=== PATIENT | female | born 1995 | race Caucasian/White ===

== ENCOUNTER 2016-09-11 15:06 | Emergency (ER) | payer OTHER ==
[2016-09-11] MEDS ORDERED: IBUPROFEN 800 MG TABLET PO ONE (16:01)
[2016-09-11] MEDS: IBUPROFEN 800 MG TABLET PO STA (16:02)
== END 2016-09-11 17:30 | disposition home or self-care (01) ==
DX: S60.222A Contusion of left hand, initial encounter (principal); S50.02XA Contusion of left elbow, initial encounter; S50.12XA Contusion of left forearm, initial encounter; W01.198A Fall on same level from slipping, tripping and stumbling with subsequent striking against other object, initial encounter; Y93.89 Activity, other specified; Y92.89 Other specified places as the place of occurrence of the external cause; Y99.0 Civilian activity done for income or pay; F17.200 Nicotine dependence, unspecified, uncomplicated
CPT/HCPCS: 73080; 73090; 73130; 99283; A9270

== ENCOUNTER 2016-09-13 11:12 | Emergency (ER) | payer OTHER ==
[2016-09-13] MEDS ORDERED: HYDROcod/ACETAM 5/325 MG TABLET PO STA (12:10)
[2016-09-13] MEDS ORDERED: HYDROcod/ACETAM 5/325 MG TABLET ONE (12:27)
== END 2016-09-13 13:00 | disposition home or self-care (01) ==
DX: M62.838 Other muscle spasm (principal); W01.0XXA Fall on same level from slipping, tripping and stumbling without subsequent striking against object, initial encounter; Y92.138 Other place on military base as the place of occurrence of the external cause; Y99.1 Military activity; F17.200 Nicotine dependence, unspecified, uncomplicated
CPT/HCPCS: 73030; 99283; A9270

== ENCOUNTER 2019-01-22 08:31 | Outpatient (CLI) | payer OTHER ==
--- NOTE | 2019-01-22 17:48 | MRI Report ---
Reason: PAIN IN UNSPECIFIED JOINT, THIGH Procedure Date: 01/22/2019 Accession Number: [id number] / [id number] Procedure: MRI - Femur/Thigh RT W/O CPT Code: FULL RESULT: EXAM: RIGHT FEMUR/THIGH MRI WITHOUT CONTRAST EXAM DATE: 01/22/2019 09:35 AM. CLINICAL HISTORY: Right upper leg pain. Injured running. No prior surgery. COMPARISON: None. TECHNIQUE: Multiplanar, multisequence T1-weighted and fluid-sensitive sequences of the femur/thigh without contrast. Other: None. FINDINGS: Bones: No fractures or subluxations. No marrow edema. No bone lesions. Joint Spaces: Visualized portion of the hip joint is unremarkable on these large [id number] images. Tendons: The visualized hamstring origins are unremarkable. Musculature: No edema or fatty atrophy. Other: The visualized sciatic and femoral nerves are unremarkable. The subcutaneous tissues are unremarkable. IMPRESSION: No MRI abnormalities in the femur/thigh. [facility]
--- NOTE | 2019-01-22 18:36 | MRI Report ---
Reason: PAIN IN UNSPECIFIED JOINT, THIGH Procedure Date: 01/22/2019 Accession Number: [id number] / [id number] Procedure: MRI - Knee RT W/O CPT Code: FULL RESULT: EXAM: RIGHT KNEE MRI WITHOUT CONTRAST EXAM DATE: 01/22/2019 10:08 AM. CLINICAL HISTORY: PAIN IN UNSPECIFIED JOINT, THIGH. COMPARISON: None. TECHNIQUE: Multiplanar, multisequence T1-weighted and fluid-sensitive sequences of the knee without contrast. Other: None. FINDINGS: Bones: No fractures or subluxations. No marrow edema. No bone lesions. Articular Cartilage: Unremarkable. Medial Meniscus: The medial meniscus is intact. Lateral Meniscus: The lateral meniscus is intact. Cruciate Ligaments: The anterior and posterior cruciate ligaments are intact. Collateral Ligaments: The medial collateral and lateral collateral ligamentous structures are intact. Tendons: The quadriceps, patellar, semimembranosus, and popliteus tendons are unremarkable. Musculature: No edema or fatty atrophy. Other: No effusion. No popliteal cyst. No loose bodies. The medial and lateral retinacula are intact. The subcutaneous tissues and fat pads are unremarkable. IMPRESSION: No MRI abnormalities in the knee. [facility]
== END 2019-01-22 08:32 | disposition home or self-care (01) ==
LOC: DI 08:31
PROVIDERS: ATTEND General Practice
DX: M79.651 Pain in right thigh (principal); M25.561 Pain in right knee

== ENCOUNTER 2019-01-23 22:08 | Outpatient (CLI) | payer OTHER ==
--- NOTE | 2019-01-24 07:04 | Ultrasound Report ---
Reason: OTHER OVARIAN CYST, LEFT SIDE Procedure Date: 01/23/2019 Accession Number: [id number] / [id number] Procedure: US - Pelvic w/Transvaginal CPT Code: FULL RESULT: EXAM: PELVIC ULTRASOUND EXAM DATE: 01/23/2019 11:18 PM. CLINICAL HISTORY: Left ovarian cyst. COMPARISON: FEMUR/THIGH RT W/O 01/22/2019 8:55 AM. TECHNIQUE: Real-time transabdominal pelvic scan performed to identify the uterus and adnexa and as an overview of other pelvic structures, followed by transvaginal scan to provide greater detail of the uterus and adnexa, with static image documentation. FINDINGS: Uterus: 7.8 x 4.4 x 3.2 cm, volume 57.4 cc. Anteverted position. Normal overall size and echotexture. Masses: None. Endometrium: 3 mm. Normal. Cervix: Unremarkable. Right Ovary: 3.0 x 2.4 x 2.1 cm, volume 7.9 cc. Normal echotexture and blood flow. Left Ovary: 3.1 x 2.4 x 2.5 cm, volume 9.7 cc. Normal echotexture and blood flow. There is a 6.5 x 6.8 x 4.9 cm cyst adjacent to the left ovary containing low level internal avascular echoes and a probable fluid-fluid level. No solid component seen. Free Fluid: Trace considered physiologic. Other: None. IMPRESSION: 1. Left paraovarian 6.8 cm hemorrhagic cyst versus endometrioma. [facility] The call report notification system was initiated by Dr. Mick Mclean at 01:17 AM on 01/24/2019. The above call report findings were discussed with Ignacio Weller by Dr. Mick Mclean at 01:22 AM on 01/24/2019.
== END 2019-01-23 22:09 | disposition home or self-care (01) ==
LOC: DI 22:08
PROVIDERS: ATTEND Obstetrics & Gynecology
DX: N83.292 Other ovarian cyst, left side (principal)
CPT/HCPCS: 36415; 76830; 76856; 82378; 85027; 85651; 86304

== ENCOUNTER 2019-01-28 11:02 | Outpatient (CLI) | payer OTHER ==
[2019-01-28 11:31] LABS: BASOPHILS % (AUTO) 0.4 %; EOSINOPHILS # (AUTO) 0.1 10^3/uL (0.0-0.7); EOSINOPHILS % (AUTO) 1.5 %; HGB - HEMOGLOBIN 12.7 g/dL (12.0-16.0); LYMPHOCYTES # (AUTO) 1.8 10^3/uL (1.5-3.5); LYMPHOCYTES % (AUTO) 33.3 %; MEAN CORPUSCULAR HEMOGLOBIN 30.5 pg (27.0-31.0); MEAN CORPUSCULAR HGB CONC 33.4 g/dL (32.0-36.0); MEAN CORPUSCULAR VOLUME 91.1 fL (81.0-99.0); MEAN PLATELET VOLUME 10.5 fL (7.9-10.8); MONOCYTES # (AUTO) 0.4 10^3/uL (0.0-1.0); MONOCYTES % (AUTO) 7.5 %; NEUTROPHILS # (AUTO) 3.1 10^3/uL (1.5-6.6); NEUTROPHILS % (AUTO) 57.1 %; PLT - PLATELET COUNT 246 10^3/uL (130-450); RED BLOOD COUNT 4.17 10^6/uL (4.20-5.40); RED CELL DISTRIBUTION WIDTH 12.9 % (12.0-15.0); WHITE BLOOD COUNT 5.5 x10^3/uL (4.8-10.8)
[2019-01-28 11:37] LABS: HCG UR QUAL NEGATIVE
[2019-01-28 11:43] LABS: CALCIUM 8.8 mg/dL (8.5-10.3); CREATININE 0.6 mg/dL (0.4-1.0)
[2019-01-29] MEDS ORDERED: ONDANSETRON 4 MG/2 ML VIAL IVP PRN (17:05)
[2019-01-29] MEDS ORDERED: LORazepam 2 MG/ML VIAL IVP PRN (17:05)
[2019-01-29] MEDS ORDERED: oxyCODONE 5 MG TABLET PO PRN (17:05)
[2019-01-29] MEDS ORDERED: HYDROmorphone 0.5 MG/0.5 ML SYRINGE IVP PRN (17:05)
--- NOTE | 2019-01-29 17:09 | OPERATIVE REPORT ---
Operative Report - General Procedure Date: 01/29/19 Planned Procedure: Laporoscopic excision of left ovarian endometrioma Pre-Op Diagnosis: 7 cm left ovarian endometrioma Procedure Performed: Laporoscopic excision of left ovarian endometrioma Post Op Diagnosis: 7 cm left ovarian endometrioma - Procedure Note Primary Surgeon: Ignacio Weller MD Secondary Surgeon: Caryn Cleaning Anesthesia Provider: Abena Massey CRNA Anesthesia Technique: General ET tube Pathology: left ovarian endometrioma IV Fluids (mL): 1,200 Estimated Blood Loss (mL): 100 Urine Output (mL): 100 Indications: 7 cm left endometrioma - Other Other Information/Narrative: dictation # [id number]
== END 2019-01-28 11:03 | disposition home or self-care (01) ==
LOC: LAB 11:02
PROVIDERS: ATTEND Obstetrics & Gynecology
DX: Z01.812 Encounter for preprocedural laboratory examination (principal); N80.1 Endometriosis of ovary
CPT/HCPCS: 36415; 80048; 81025; 85025; 86850; 86900; 86901

== ENCOUNTER 2019-01-29 11:52 | Day surgery (SDC) | payer OTHER ==
[~2019-01-29 11:52] MED LIST: CEFAZOLIN SODIUM IN 0.9 % NACL 2 GM/100 ML BAG IV ONE
[2019-01-29 12:35] LABS: HCG UR QUAL NEGATIVE
[2019-01-29] MEDS ORDERED: LACTATED RINGERS 1,000 ML IV ONE ×2 (12:43→17:05)
--- NOTE | 2019-01-29 13:08 | ANESTHESIA ---
Pre-Anesthesia VS, & Labs - Diagnosis left endometrioma - Procedure laparoscopic removal of endometrioma on left Vital Signs: Temp Pulse Resp BP Pulse Ox 36.8 C 80 18 117/74 100 01/29/19 12:10 01/29/19 12:10 01/29/19 12:10 01/29/19 12:10 01/29/19 12:10 Height 5 ft 7 in Weight (kg) 77 kg Body Mass Index 23.3 - NPO >8 hours - Is Patient ?: No Home Medications and Allergies Home Medications: Ambulatory Orders Acetaminophen [Tylenol] 3,253,650 mg PO DAILY PRN 01/28/19 Acetaminophen [Tylenol] 3,253,650 mg PO DAILY PRN 01/28/19 Allergies/Adverse Reactions: Allergies Allergy/AdvReac Type Severity Reaction Status Date / Time No Known Drug Allergies Allergy Verified 01/28/19 13:40 Anes History & Medical History - Anesthetic History Anesthesia Complications: reports: No previous complications Family history of Anesthesia Complications: Denies Family history of Malignant Hyperthermia: Denies - Medical History Cardiovascular: reports: None Pulmonary: reports: None Gastrointestinal: reports: GERD Urinary: reports: None, Incontinence Musculoskeletal: reports: Fibromyalgia, Other Skin: reports: Rosacea Smoking Status: Former smoker Exam General: Alert Dental: WNL Mouth Opening: Greater than 4 Fingerbreadths Mallampati classification: III Thyromental Distance: greater than 6 cm Respiratory: Lungs clear Cardiovascular: Regular rate, Normal S1, Normal S2 Mental/Cognitive Status: Alert/Oriented X3 Plan Anesthesia Type: General Consent for Procedure(s) Verified and Reviewed: Yes Code Status: Attempt Resuscitation ASA classification: 2-Mild systemic disease Is this case an emergency?: No
[2019-01-29] MEDS ORDERED: SCOPOLAMINE PATCH TOP ONE (13:17)
[2019-01-29] MEDS ORDERED: MIDAZOLAM 2 MG/2 ML VIAL ONE (13:22)
[2019-01-29] MEDS ORDERED: BUPIVACAINE 0.25%-EPI 1:200000 PF 30 ML VIAL ONE (15:15)
[2019-01-29] MEDS ORDERED: BUPIVACAINE 0.25%-EPI 1:200000 PF 10 ML VIAL SUBQ ONE ×2 (15:17)
[2019-01-29] MEDS ORDERED: ONDANSETRON 4 MG/2 ML VIAL ONE (17:41)
[2019-01-29] MEDS ORDERED: HYDROmorphone 0.5 MG/0.5 ML SYRINGE ONE (17:47)
[2019-01-29] MEDS ORDERED: ONDANSETRON 4 MG/2 ML VIAL IVP PRN (18:18)
[2019-01-29] MEDS ORDERED: HYDROmorphone 0.5 MG/0.5 ML SYRINGE IVP PRN (18:18)
[2019-01-29] MEDS ORDERED: LORazepam 2 MG/ML VIAL IVP PRN (18:18)
[2019-01-29] MEDS: oxyCODONE 5 MG TABLET PO PRN (19:56)
[2019-01-29] MEDS ORDERED: SODIUM CHLORIDE FLUSH 0.9% 10 ML SYRINGE ONE (22:33)
[2019-01-30] MEDS: oxyCODONE 5 MG TABLET PO PRN ×3 (00:14→08:50)
[2019-01-30] MEDS ORDERED: SODIUM CHLORIDE FLUSH 0.9% 10 ML SYRINGE ONE ×2 (01:36→08:54)
--- NOTE | 2019-01-30 01:44 | OPERATIVE REPORT ---
DATE OF SERVICE: 01/29/2019 Physician: Ignacio Weller MD PREOPERATIVE DIAGNOSIS: Left ovarian endometrioma. POSTOPERATIVE DIAGNOSIS: Left ovarian endometrioma. PROCEDURE PERFORMED: Laparoscopic removal of left ovarian endometrioma, as well as left serous cyst. SURGEON: Ignacio Weller MD PAPER BAG MAKER: Anju Crespo MD ANESTHESIA: General via endotracheal tube with Christina Matthews CRNA. ESTIMATED BLOOD LOSS: 100 mL INTRAVENOUS FLUIDS: 1200 mL URINE: 100 mL, in-and-out catheterization prior to the case. FINDINGS: Upon entering the abdominal cavity, the appendix appeared to be normal. There is no evide nce of any injury at site of insertion. However, there was a large cyst attached to the left ovary, ovarian tissue being splayed over it. There was also evidence of small, serous cyst associated with this. The right tube and ovary appeared free of disease, as well as the left fallopian tube. DESCRIPTION OF PROCEDURE: Following adequate endotracheal anesthesia, patient was placed in dorsal l ithotomy position. At this point, she was prepped and draped in the usual fashion. A timeout was pe rformed, at which time, the concerns were addressed. A speculum was placed in the vagina. The cervi x was visualized and then dilated up to 8 mm, and then a HUMI catheter was placed without difficulty. The shellfish dredge operator's gloves were changed and following this, following local anesthesia with 0.25% Marcai ne, a #11 blade was used for a stab wound below the subumbilicus in a transverse orientation. A 5 mm trocar and sheath were placed under direct visualization on the first pass. At this point, both lef t and right lower quadrant incisions were made, following local anesthesia with 0.25% Marcaine, and 5 mm trocars and sheaths were both placed under direct visualization. The pelvis was inspected. Ther e was evidence of a large left ovarian cyst, compatible with the ultrasound findings. It also discol ored, compatible with the diagnosis of an endometrioma. At this point, electrocautery was used in a hook to score over the ovary. Then, a [place] LigaSure was used to dissect the ovarian endometrioma from the ovary. This was carried most of the way in. At this point, the endometrioma ruptured. Th en, using traction and countertraction, a remainder of the endometrioma was removed from the ovary. The left ovarian cyst serous cyst was then removed. The bed was treated with electrocautery. There was some difficulty with oozing. This was then eventually treated with Surgicel with direct pressure . Following observation, this appeared to have good control of her bleeding. There was no evidence of any further bleeding at this time. At this point, the procedure was terminated. Both left and ri ght trocar sites were removed under direct visualization. The CO2 was allowed to escape through the subumbilical port. Both sites were then closed using 4-0 Monocryl and injected with 0.25% Marcaine. Following deflation of the HUMI catheter, the HUMI was removed from the cervix. Patient tolerated t he procedure well and was taken to Recovery in stable condition. Sponge and needle counts were corre ct. TD: 01/29/2019 17:26
[2019-01-30] MEDS ORDERED: ACETAMINOPHEN 500 MG TABLET PO PRN (08:17)
[2019-01-30] MEDS ORDERED: KETOROLAC 30 MG/ML VIAL IVP PRN (08:18)
[2019-01-30] MEDS ORDERED: oxyCODONE 5 MG TABLET PO PRN (08:19)
--- NOTE | 2019-01-30 08:32 | PROVIDER PROGRESS NOTE ---
Subjective - General Procedure Date: 01/29/19 Post Op Days: 1 Procedure Performed: Laproscopic removal of left ovarian endometrioma - Review of Systems Wound/Incisions: positive: Dressing dry and intact, No drainage General: positive: No symptoms (Pain 6/10.) Pulmonary: positive: No symptoms Cardiovascular: positive: No symptoms Gastrointestinal: negative: Nausea, Vomiting, Flatus Objective - Patient Data Reviewed Vital Signs: Yes Vital Signs: Vital Signs x48h Temp Pulse Resp BP Pulse Ox 01/30/19 07:30 36.9 C 53 L 16 99/51 L 98 01/30/19 04:00 36.5 C 51 L 16 94/41 L 99 Weight: Weight 01/28/19 01/29/19 01/30/19 23:59 23:59 23:59 Weight (kg) 77 kg Intake & Output: Intake and Output Totals x24h 01/28/19 01/29/19 01/30/19 23:59 23:59 23:59 Intake Total 1500 Output Total 300 Balance 1200 - Lab Results Other Lab Results: Lab Results x24hrs 01/29/19 Range/Units Unknown Ur Specific [place] 1.015 (1.002-1.030) Urine HCG, Qual NEGATIVE - Current Medications Current Medications: Current Medications Generic Name Dose Route Start Last Admin Trade Name Freq PRN Reason Stop Dose Admin Hydromorphone HCl 0.5 mg 01/29/19 18:18 01/30/19 01:38 Dilaudid Inj Syringe IVP 0.5 mg Q30M PRN Administration Breakthrough Pain Ondansetron HCl 4 mg 01/29/19 18:18 01/29/19 22:26 Zofran Inj IVP 4 mg Q6HR PRN Administration Nausea / Vomiting - Physical Exam Wound/Incisions: positive: Healing well, Dressing dry and intact General Appearance: positive: Mild distress (Pain is 6/10.) Respiratory: positive: Chest non-tender Cardiovascular: positive: Regular rate & rhythm Abdomen: positive: Nml bowel sounds, Tenderness. negative: Guarding, Rebound Back: negative: CVA tenderness (R), CVA tenderness (L) Extremities: negative: Calf tenderness, Andi's sign/cords Neurologic/Psychiatric: positive: Oriented x3 Impression/Plan - Problem List Problem List: Pr is POD #1 slow progress. difficulty with pain control. may be worse secondary to FM. will obtain CBC.
[2019-01-30 09:25] LABS: BASOPHILS % (AUTO) 0.2 %; EOSINOPHILS % (AUTO) 0.2 %; HGB - HEMOGLOBIN 12.8 g/dL (12.0-16.0); LYMPHOCYTES # (AUTO) 2.1 10^3/uL (1.5-3.5); LYMPHOCYTES % (AUTO) 15.4 %; MEAN CORPUSCULAR HEMOGLOBIN 29.4 pg (27.0-31.0); MEAN CORPUSCULAR HGB CONC 31.5 g/dL (32.0-36.0); MEAN CORPUSCULAR VOLUME 93.1 fL (81.0-99.0); MEAN PLATELET VOLUME 10.2 fL (7.9-10.8); MONOCYTES # (AUTO) 0.8 10^3/uL (0.0-1.0); MONOCYTES % (AUTO) 6.2 %; NEUTROPHILS # (AUTO) 10.5 10^3/uL (1.5-6.6); NEUTROPHILS % (AUTO) 77.6 %; PLT - PLATELET COUNT 251 10^3/uL (130-450); RED BLOOD COUNT 4.36 10^6/uL (4.20-5.40); RED CELL DISTRIBUTION WIDTH 13.1 % (12.0-15.0); WHITE BLOOD COUNT 13.5 x10^3/uL (4.8-10.8)
[2019-01-30 11:17] VITALS: BP 100/54
--- NOTE | 2019-02-03 13:28 | OPERATIVE REPORT ---
Operative Report - General Planned Procedure: Laporoscopic excision of left ovarian endometrioma Pre-Op Diagnosis: 7 cm left ovarian endometrioma Procedure Performed: Laporoscopic excision of left ovarian endometrioma Post Op Diagnosis: 7 cm left ovarian endometrioma - Procedure Note Primary Surgeon: Ignacio Weller MD Secondary Surgeon: Caryn Cleaning Anesthesia Provider: Abena Massey CRNA Anesthesia Technique: General ET tube Pathology: left ovarian endometrioma IV Fluids (mL): 1,200 Estimated Blood Loss (mL): 100 Urine Output (mL): 100 Indications: 7 cm left endometrioma - Other Other Information/Narrative: dictation # [id number]
== END 2019-01-30 12:30 | disposition home or self-care (01) ==
LOC: SDS 11:52 → MS2 17:46 → SDS 01-30 12:30
PROVIDERS: ATTEND Obstetrics & Gynecology
PROC: 0UB14ZZ Excision of Left Ovary, Percutaneous Endoscopic Approach (ICD-10-PCS; principal; 2019-01-29 13:00)
DX: N80.1 Endometriosis of ovary (principal); N83.202 Unspecified ovarian cyst, left side
CPT/HCPCS: 58662; 81025; 85025; A9270; J0690; J1170; J3490; J7120

== ENCOUNTER 2019-01-31 09:28 | Emergency (ER) | payer OTHER ==
--- NOTE | 2019-01-31 09:55 | ED Physician Documentation ---
History of Present Illness - Stated complaint Stated Complaint: POST SURG COMPLICATION - Chief complaint Chief Complaint: General - History obtained from History obtained from: Patient - Additonal information Additional information: This is a 23-year-old female with a history of fibromyalgia, who recently underwent partial oophorectomy and ovarian cyst resection on the , presents with several pain complaints. She states that she has some mild persistent abdominal discomfort over her surgical site which has been largely unchanged since her surgery. This morning she also had some cramping on her bilateral anterior thighs. She also had some twitching pain in her left pinky finger, and a now resolved episode of slight pain underneath her left breast. She has had some nausea but no vomiting she took her home pain medications and then sought care in this ED. No fever, hemoptysis, history of blood clots. Review of Systems Constitutional: reports: Myalgias. 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 - Past Surgical History Past Surgical History: No - Present Medications Home Medications: Ambulatory Orders Medication Instructions Recorded Confirmed Acetaminophen [Tylenol] 3,253,650 mg PO DAILY PRN 01/28/19 01/31/19 Acetaminophen 650 mg PO Q6HR #30 tablet 01/31/19 Ondansetron Odt [Zofran] 4 mg TL Q6H PRN #10 tablet 01/31/19 Polyethylene Glycol 3350 [Miralax] 17 gm PO BID PRN #1 powder 01/31/19 oxyCODONE [Roxicodone] 5 mg PO Q4-6H 01/31/19 01/31/19 - Allergies Allergies/Adverse Reactions: Allergies Allergy/AdvReac Type Severity Reaction Status Date / Time No Known Drug Allergies Allergy Verified 01/31/19 09:36 - Social History Does the pt smoke?: Yes Smoking Status: Former smoker - Immunizations Immunizations are current?: Yes Immunizations: TDAP current <10years PD ED PE NORMAL - Vitals Vital signs reviewed: Yes - General General: Alert and oriented X 3, Other (Well appearing) - HEENT HEENT: PERRL - Neck Neck: Supple, no meningeal sign - Cardiac Cardiac: RRR, No murmur - Respiratory Respiratory: Clear bilaterally - Abdomen Abdomen: Normal bowel sounds, Soft, Other (Well-healed laparoscopy incisions with mild expected bruising. No active bleeding. There is mild tenderness in the suprapubic region over the laparoscopy site. There is also mild tenderness in the bilateral upper quadrants. No guarding) - Back Back: No CVA TTP - Derm Derm: Warm and dry - Extremities Extremities: No deformity, No calf tenderness / cord - Neuro Neuro: Alert and oriented X 3 - Psych Psych: Normal mood Results - Vitals Vitals: Oxygen O2 Source Room air - Labs Labs: Laboratory Tests 01/31/19 01/31/19 01/31/19 10:22 10:22 10:22 WBC 8.4 RBC 3.91 L Hgb 11.8 L Hct 36.5 L MCV 93.4 MCH 30.2 MCHC 32.3 RDW 13.3 Plt Count 218 MPV 10.7 Neut # (Auto) 4.6 Lymph # (Auto) 2.8 [place] # (Auto) 0.8 Eos # (Auto) 0.2 Baso # (Auto) 0.0 Absolute Nucleated RBC 0.00 Nucleated RBC % 0.0 Sodium 140 Potassium 3.1 L Chloride 106 Carbon Dioxide 25 Anion Gap 9.0 BUN 11 Creatinine 0.8 Estimated GFR (MDRD) 89 Glucose 80 Calcium 9.0 Total Bilirubin 0.5 AST 16 ALT 13 Alkaline Phosphatase 57 Total Protein 6.9 Albumin 4.0 Globulin 2.9 Albumin/Globulin Ratio 1.4 Lipase 28 HCG, Quant < 0.60 Urine Color Urine Clarity Urine pH Ur Specific [place] Urine Protein Urine Glucose (UA) Urine Ketones Urine Occult Blood Urine Nitrite Urine Bilirubin Urine Urobilinogen Ur Leukocyte Esterase Urine RBC Urine WBC Ur Squamous Epith Cells Urine Bacteria Ur Microscopic Review Urine Culture Comments 01/31/19 10:45 WBC RBC Hgb Hct MCV MCH MCHC RDW Plt Count MPV Neut # (Auto) Lymph # (Auto) [place] # (Auto) Eos # (Auto) Baso # (Auto) Absolute Nucleated RBC Nucleated RBC % Sodium Potassium Chloride Carbon Dioxide Anion Gap BUN Creatinine Estimated GFR (MDRD) Glucose Calcium Total Bilirubin AST ALT Alkaline Phosphatase Total Protein Albumin Globulin Albumin/Globulin Ratio Lipase HCG, Quant Urine Color LT RED Urine Clarity HAZY Urine pH 6.5 Ur Specific [place] <=1.005 Urine Protein NEGATIVE Urine Glucose (UA) NEGATIVE Urine Ketones NEGATIVE Urine Occult Blood LARGE H Urine Nitrite NEGATIVE Urine Bilirubin NEGATIVE Urine Urobilinogen 0.2 (NORMAL) Ur Leukocyte Esterase NEGATIVE Urine RBC TNTC H Urine WBC 4-5 Ur Squamous Epith Cells FEW Squamous Urine Bacteria Rare Ur Microscopic Review INDICATED Urine Culture Comments NOT INDICATED PD MEDICAL DECISION MAKING - ED course Complexity details: considered differential (Bowel obstruction, postsurgical pain, electrolyte abnormality, abscess/infection, urinary tract infection) ED course: This is a 23-year-old female who presents with some abdominal pain after recent surgery. On initial examination patient is nontoxic-appearing vital signs unremarkable and she has a benign abdominal exam. Labs are notable for mild anemia of 11.8, white count is normal. CMP shows a mild hypokalemia which is repleted orally, her lipase is negative, hCG is negative and UA is negative for infection. Patient was given Zofran for her symptoms, on repeat examination she is feeling improved, she is able to tolerate p.o. without issue, and her abdominal exam remains benign. Her vital signs remained stable while she is been in the emergency department. I discussed that she likely has some postoperative pain. She also is constipated, likely from taking narcotic medication without a stool softener, she was prescribed MiraLAX I'm not sure what the cause is of her left hand twitching, however this is completely resolved and I doubt any serious pathology. I discussed that she return the emergency department if she has worsening symptoms, otherwise she can follow-up with her surgeon. Patient agreed with plan was discharged home. Departure - Departure Disposition: 01 Home, Self Care Clinical Impression: Hypokalemia, Abdominal pain Condition: Stable Instructions: Hypokalemia Dc, ED Abdominal Pain Unkn Cause Follow-Up: Your,Surgeon [Other] (Please follow up with your surgeon as soon as possible, within one week) Prescriptions: Acetaminophen 650 mg PO Q6HR #30 tablet Ondansetron Odt [Zofran] 4 mg TL Q6H PRN #10 tablet PRN Reason: Nausea / Vomiting Polyethylene Glycol 3350 [Miralax] 17 gm PO BID PRN #1 powder PRN Reason: Constipation Comments: You were seen today for pain following a surgery on your ovaries. This is likely postsurgical pain, please take MiraLAX to prevent constipation, take your prescribed pain medication as well as a Tylenol, and return to the emergency department if having any worsening pain, persistent vomiting, or any other delano rning symptoms. Discharge Date/Time: 01/31/19 13:21
[2019-01-31] MEDS ORDERED: MORPHINE 2 MG/ML CARPUJECT IVP STA (10:07)
[2019-01-31] MEDS ORDERED: ONDANSETRON 4 MG/2 ML VIAL IVP STA (10:07)
[2019-01-31 10:26] LABS: BASOPHILS % (AUTO) 0.4 %; EOSINOPHILS # (AUTO) 0.2 10^3/uL (0.0-0.7); EOSINOPHILS % (AUTO) 2.2 %; HGB - HEMOGLOBIN 11.8 g/dL (12.0-16.0); LYMPHOCYTES # (AUTO) 2.8 10^3/uL (1.5-3.5); LYMPHOCYTES % (AUTO) 33.5 %; MEAN CORPUSCULAR HEMOGLOBIN 30.2 pg (27.0-31.0); MEAN CORPUSCULAR HGB CONC 32.3 g/dL (32.0-36.0); MEAN CORPUSCULAR VOLUME 93.4 fL (81.0-99.0); MEAN PLATELET VOLUME 10.7 fL (7.9-10.8); MONOCYTES # (AUTO) 0.8 10^3/uL (0.0-1.0); MONOCYTES % (AUTO) 9.2 %; NEUTROPHILS # (AUTO) 4.6 10^3/uL (1.5-6.6); NEUTROPHILS % (AUTO) 54.3 %; PLT - PLATELET COUNT 218 10^3/uL (130-450); RED BLOOD COUNT 3.91 10^6/uL (4.20-5.40); RED CELL DISTRIBUTION WIDTH 13.3 % (12.0-15.0); WHITE BLOOD COUNT 8.4 x10^3/uL (4.8-10.8)
[2019-01-31 10:45] LABS: ALBUMIN/GLOBULIN RATIO 1.4 (1.0-2.2); BILIRUBIN,TOTAL 0.5 mg/dL (0.2-1.0); CREATININE 0.8 mg/dL (0.4-1.0); TOTAL PROTEIN 6.9 g/dL (6.7-8.2)
[2019-01-31 11:30] LABS: BILIRUBIN,URINE NEGATIVE (NEGATIVE); GLUCOSE, URINE (UA) NEGATIVE (NEGATIVE); KETONES,URINE (UA) NEGATIVE (NEGATIVE); LEUKOCYTE ESTERASE, URINE NEGATIVE (NEGATIVE); NITRITE,URINE NEGATIVE (NEGATIVE); OCCULT BLOOD,URINE LARGE (NEGATIVE); PH,URINE 6.5 PH (5.0-7.5); PROTEIN,URINE NEGATIVE (NEGATIVE); UROBILINOGEN,URINE 0.2 (NORMAL) E.U./dL (NORMAL)
[2019-01-31 11:34] LABS: CLARITY,URINE HAZY (CLEAR)
[2019-01-31 11:51] LABS: BACTERIA,URINE Rare /HPF (None Seen); RBC,URINE TNTC /HPF (0-5); SQUAMOUS EPITHELIAL CELL,UR FEW Squamous (<= Few)
[2019-01-31] MEDS ORDERED: POTASSIUM CHLORIDE 20 MEQ/15 ML UDC PO ONE (12:55)
[2019-01-31 13:07] VITALS: BP 102/67
== END 2019-01-31 13:21 | disposition home or self-care (01) ==
LOC: ED 09:28
DX: G89.18 Other acute postprocedural pain (principal); R10.9 Unspecified abdominal pain; E87.6 Hypokalemia; Z87.891 Personal history of nicotine dependence
CPT/HCPCS: 36415; 80053; 81001; 83690; 84702; 85025; 93005; 96374; 99283; 99284; A9270; 81003; 87086

== ENCOUNTER 2020-09-16 10:49 | Outpatient (CLI) | payer OTHER ==
--- NOTE | 2020-09-16 11:42 | XRAY Report ---
PROCEDURE: Lumbar Spine 2 View INDICATIONS: RT LEG PAIN TECHNIQUE: 2 views of the lumbar spine were acquired. COMPARISON: None. FINDINGS: Bones: 5 [id number] vertebrae are present. There is loss of normal lumbar lordosis and otherwi se normal bony alignment. No vertebral body compression fractures. No suspicious bony lesions. Soft tissues: Overlying bowel gas pattern is normal. No suspicious soft tissue calcifications. IMPRESSION: Loss of normal lumbar lordosis, suggestive of muscle spasm. No acute fracture. No osseou s lesion. If symptoms and/or clinical suspicion for pathology continue, further assessment with repea t plain films, or advanced imaging (e.g., CT, MRI, or bone scan) is recommended for further assessmen t. Reviewed by: Matthew Balderas MD on 09/16/2020 11:41 AM PDT Approved by: Matthew Balderas MD on 09/16/2020 11:41 AM PDT Station ID: [id number]
== END 2020-09-16 10:50 | disposition home or self-care (01) ==
LOC: DI 10:49
PROVIDERS: ATTEND Family Medicine Sports Medicine
DX: M79.604 Pain in right leg (principal)